=== PATIENT | male | born 1960 | race Caucasian/White ===

== ENCOUNTER 2017-11-09 07:27 | Emergency (ER) | payer OTHER ==
[~2017-11-09] VITALS: Ht 188 cm; Wt 86.0 kg
[~2017-11-09 07:27] MED LIST: DILANTIN 100 MG PO
[2017-11-09 07:58] LABS: CARBON DIOXIDE (BICARBONATE) 31.8 MEQ/L (20-31)
[2017-11-09 08:41] LABS: CHLORIDE 91 mEq/L (99-109); POTASSIUM 5.4 mEq/L (3.7-5.4); SODIUM 126 mEq/L (136-147)
[2017-11-09 08:47] LABS: GFR ESTIMATE (CALCULATED) > 59 mL/min/ (58.99-99999)
[2017-11-09 08:48] LABS: UREA NITROGEN (BUN) 21 mg/dL (9-23)
[2017-11-09 08:52] LABS: GLUCOSE 657 mg/dL (70-99)
[2017-11-09 09:05] LABS: PATIENT HCT 42.5; PATIENT HGB 16.5
[2017-11-09 09:12] LABS: EOSINOPHIL (%) 1.1 % (0-5); EOSINOPHIL COUNT 0.1 K/uL (0-0.3); HEMATOCRIT 42.5 % (38.0-50.0); IMMATURE GRANULOCYTE (%) 0.9 % (0.0-0.7); IMMATURE GRANULOCYTE COUNT 0.1 K/uL; INSTRUMENT ABS NEUTROPHIL CT 4.7 K/uL; LYMPHOCYTE COUNT 1.4 K/uL (1.0-2.8); MCH 30.1 PG (29.0-34.0); MCHC 37.6 G/DL (30.0-36.0); MCV 79.9 FL (86-99); MEAN PLAT.VOLUME 10.8 uM^3 (9.0-12.4); MONOCYTE (%) 6.3 % (3-12); MONOCYTE COUNT 0.4 K/uL (0-0.8); NEUTROPHIL COUNT 4.7 K/uL (1.8-6.4); PLATELET COUNT 153 K/uL (156-360); RBC DIS.WIDTH-CV 12.8 % (11.8-14.6); RBC DIS.WIDTH-SD 36.1 % (39-53); RED BLOOD COUNT 5.32 M/uL (4.00-5.50); WHITE BLOOD COUNT 6.6 K/uL (4.1-10.2)
[2017-11-09 11:10] LABS: POINT-OF-CARE METER ID UU13113747
[2017-11-09 11:11] LABS: ADD MIUA? NO; BILIRUBIN NEGATIVE; BLOOD NEGATIVE; COLOR STRAW ((YELLOW)); GLUCOSE (STRIP) >=500; KETONES 20; LEUKOCYTES NEGATIVE; NITRITE NEGATIVE; PROTEIN (STRIP) NEGATIVE; SPECIFIC GRAVITY 1.036 (1.000-1.030); UROBILINOGEN 0.2 MG/DL (0.2-1.0)
[2017-11-09] MEDS ORDERED: METFORMIN HCL500 MG PO (12:56)
[2017-11-09 13:09] VITALS: BP 134/77
[2017-11-09 13:57] LABS: POINT-OF-CARE METER ID UU13113747
== END 2017-11-09 13:27 | disposition home or self-care (01) ==
LOC: EME 07:27
PROVIDERS: Emergency Medicine; Physician Assistant
DX: E11.9 Type 2 diabetes mellitus without complications (principal); R20.0 Anesthesia of skin; R53.1 Weakness; R35.0 Frequency of micturition
CPT/HCPCS: 80048; 81003; 82010; 82803; 82948; 85025; 99281; 99285; J7030